=== PATIENT | female | born 1970 | race Caucasian/White ===

== ENCOUNTER 2017-02-22 08:58 | Emergency (ER) | payer BC ==
[2017-02-22 09:10] VITALS: BP 116/73
[2017-02-22] MEDS ORDERED: PROVENTIL IH ONE (10:13)
--- NOTE | 2017-02-22 17:27 | Emergency Department Report ---
Entered by GLADYS CABRERA, acting as scribe for JASON CHRISTINA PA. - General Chief complaint: Skin/Abscess/Foreign Body Stated complaint: KNOT UNDER CHIN Time Seen by Provider: 02/22/17 10:48 Source: patient Mode of arrival: Ambulatory Limitations: No Limitations - History of Present Illness Initial comments: 46 y/o female with no pertinent PMHx presents to the ED c/o a knot under chin that began 2 days ago. Patient states she noticed it 2 days ago at work and states she didn't noticed the knot prior to work. Rates severity a 0/10. Denies fever, chills, nausea, vomiting, erythema, pain to affected area, drainage, sore throat, ear pain, dental pain, headache, dizziness, chest pain, and SOB. NKDAJohnathon CAMPBELL complaint: other (knot) Onset/Timin -: days(s) Tetanus Up to Date: unsure Location: face (under chin) Severity: mild Severity scale (0 -10): 0 Consistency: constant Improves with: none Worsens with: none Context: none Associated symptoms: denies other symptoms Treatments Prior to Arrival: none - Related Data Previous Rx's Medication Instructions Recorded Last Taken Type Sulfamethoxazole/Trimethoprim 1 each PO BID #10 tablet 02/22/17 Unknown Rx [Bactrim DS TAB] Allergies Allergy/AdvReac Type Severity Reaction Status Date / Time No Known Allergies Allergy Unverified 02/22/17 09:04 Abscess Boil HPI - HPI Chief Complaint: Skin/Abscess/Foreign Body Stated Complaint: KNOT UNDER CHIN Duration: 2 Days Location: Other (under chin) Severity: None History: No Fever, No Pain, No Purulent Drainage, No Numbness, No Foreign Body, No Previous History, No Insect Bite Home Medications: Previous Rx's Medication Instructions Recorded Last Taken Type Sulfamethoxazole/Trimethoprim 1 each PO BID #10 tablet 02/22/17 Unknown Rx [Bactrim DS TAB] Allergies/Adverse Reactions: Allergies Allergy/AdvReac Type Severity Reaction Status Date / Time No Known Allergies Allergy Unverified 02/22/17 09:04 ED Review of Systems Comment: All other systems reviewed and negative Constitutional: denies: chills, fever Eyes: denies: eye pain, eye discharge, vision change ENT: denies: ear pain, throat pain, dental pain Respiratory: denies: cough, orthopnea, shortness of breath, SOB with exertion, SOB at rest, stridor, wheezing Cardiovascular: denies: chest pain, palpitations, dyspnea on exertion, orthopnea , edema, syncope, paroxysmal nocturnal dyspnea Endocrine: no symptoms reported Gastrointestinal: denies: abdominal pain, nausea, vomiting Genitourinary: denies: urgency, dysuria, discharge Musculoskeletal: denies: back pain, joint swelling, arthralgia Skin: denies: rash, lesions Neurological: denies: headache, weakness, numbness, paresthesias ED Past Medical Hx - Past Medical History Previous Medical History?: Yes Additional medical history: "EXCESSIVE CEREBRAL SPINAL FLUID; 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" - Surgical History Past Surgical History?: Yes Hx Cholecystectomy: Yes Additional Surgical History: D & C - Family History Family history: no significant - Social History Smoking Status: Never Smoker Substance Use Type: None - Medications Home Medications: Home Medications Medication Instructions Recorded Confirmed Last Taken Type Sulfamethoxazole/Trimethoprim 1 each PO BID #10 tablet 02/22/17 Unknown Rx [Bactrim DS TAB] ED Physical Exam - General Limitations: No Limitations General appearance: alert, in no apparent distress - Head Head exam: Present: atraumatic, normocephalic - Eye Eye exam: Present: normal appearance, PERRL, EOMI Pupils: Present: normal accommodation - ENT ENT exam: Present: normal exam, normal orophraynx, mucous membranes moist, TM's normal bilaterally, normal external ear exam - Expanded ENT Exam Expanded Ear exam: Present: normal external inspection Mouth exam: Present: normal external inspection, tongue normal. Absent: drooling, trismus, muffled voice, tongue elevation, laceration Teeth exam: Present: normal inspection Throat exam: Positive: normal inspection - Neck Neck exam: Present: normal inspection, full ROM, lymphadenopathy (2 cm lymph node present under LT side of chin). Absent: tenderness, meningismus, thyromegaly - Respiratory Respiratory exam: Present: normal lung sounds bilaterally. Absent: respiratory distress, wheezes, rales, rhonchi, stridor, chest wall tenderness, accessory muscle use, decreased breath sounds - Cardiovascular Cardiovascular Exam: Present: regular rate, normal rhythm, normal heart sounds. Absent: systolic murmur, diastolic murmur - GI/Abdominal GI/Abdominal exam: Present: soft, normal bowel sounds. Absent: distended - Extremities Exam Extremities exam: Present: normal inspection, full ROM, normal capillary refill. Absent: tenderness - Back Exam Back exam: Present: normal inspection, full ROM. Absent: tenderness - Neurological Exam Neurological exam: Present: alert, oriented X3, normal gait - Psychiatric Psychiatric exam: Present: normal affect, normal mood - Skin Skin exam: Present: warm, dry, intact. Absent: rash ED Course Vital Signs 02/22/17 09:07 Temperature 98.4 F Pulse Rate 70 Respiratory 17 Rate Blood Pressure 116/73 O2 Sat by Pulse 99 Oximetry ED Medical Decision Making - Medical Decision Making 46 year old female presents with lymphadenopathy ED course: Vital signs stable patient is in no acute or respiratory distress. Discussed findings with patient about diagnoses. Discussed treatment in ED with patient Discussed with patient to take 2-day course of antibiotics and apply heat to affected area Discussed with patient to follow up with PCP as referred, and to return to the ED if symptoms return or worsen. Patient states understanding and will follow instructions. Pt verbally states understanding and will comply to follow up. ED Disposition Clinical Impression: Lymphadenopathy, submental Disposition: DC-01 TO HOME OR SELFCARE Is pt being admited?: No Does the pt Need Aspirin: No Condition: Stable Instructions: Lymphadenopathy (ED), Heat Pack Application (ED) Prescriptions: Sulfamethoxazole/Trimethoprim [Bactrim DS TAB] 1 each PO BID #10 tablet Referrals: PRIMARY CARE, [Primary Care Provider] - 3-5 Days [facility] [Outside] - 3-5 Days SILVINO MENDEZ MD [Referring] - 3-5 Days OTONIEL TELLEZ DO [Staff Physician] - 3-5 Days GAL LOONEY MD [Staff Physician] - 3-5 Days SHIREEN HALEY MD [Staff Physician] - 3-5 Days Forms: Accompanied Note, Work/School Release Form(ED) Time of Disposition: 11:36 This documentation as recorded by the DEBORAH aceves JASMINE,accurately reflects the service I personally performed and the decisions made by ,JASON CHRISTINA PA.
== END 2017-02-22 11:47 | disposition home or self-care (01) ==
LOC: ED 08:58
DX: R59.1 Generalized enlarged lymph nodes (principal)
CPT/HCPCS: 99282